=== PATIENT | male | born 1945 | race Caucasian/White ===

== ENCOUNTER 2019-02-23 17:00 | Inpatient (IN) ==
[2019-02-23] MEDS ORDERED: Morphine Sulfate 2 MG/ML SYRINGE ONE (17:07)
[2019-02-23] MEDS ORDERED: Morphine Sulfate 2 MG/ML SYRINGE IVP ONE (17:12)
[2019-02-23] MEDS ORDERED: Nitroglycerin 0.4 MG TAB.SUBL SL PRN (17:46)
[2019-02-23] MEDS ORDERED: MOM Conc 10 ML UD.LIQ PO PRN (17:53)
[2019-02-23] MEDS ORDERED: Ondansetron 4 MG/2 ML VIAL IVP PRN (17:53)
[2019-02-23] MEDS ORDERED: *HR* Promethazine 25 MG/ML VIAL IVP PRN (17:53)
[2019-02-23] MEDS ORDERED: Mag Hydrox/Al Hydrox/Simeth 30 ML UDC PO PRN (17:53)
[2019-02-23] MEDS ORDERED: Naloxone 0.4 MG/ML INJ IVP PRN (17:53)
[2019-02-23] MEDS ORDERED: *HR* Dextrose 50 % in Water (Syg) 50 ML SYRINGE IVP PRN (17:56)
[2019-02-23] MEDS ORDERED: D5% in Water 1,000 ML IVC PRN (17:56)
[2019-02-23] MEDS ORDERED: Morphine Sulfate 2 MG/ML SYRINGE IVP PRN (17:56)
[2019-02-23] MEDS ORDERED: Dextrose Gel 15 GM/37.5 ML TUBE PO PRN ×2 (17:56)
[2019-02-23] MEDS ORDERED: Ergocalciferol (VIT D2) 50,000 UNIT (1.25MG) CAP PO SCH (18:00)
[2019-02-23 18:01] LABS: Basophils # 0.1 K/mcL (0.0-0.2); Basophils % 0.4 %; Eosinophils # 0.1 K/mcL (0.0-0.6); Eosinophils % 0.5 %; Hematocrit 37.6 % (37.5-50.1); Hemoglobin 11.8 g/dL (12.9-16.9); Immature Granulocytes % 0.6 % (0-4); Lymphocytes # 0.9 K/mcL (0.6-4.6); Lymphocytes % 5.6 %; Mean Corpuscular HGB Conc 31.4 g/dL (31.6-35.5); Mean Corpuscular Hemoglobin 26.7 pg (28.0-33.3); Mean Corpuscular Volume 85.1 fL (83.0-100.0); Mean Platelet Volume 9.7 fL (9.4-12.4); Monocytes # 0.9 K/mcL (0.0-1.3); Monocytes % 5.6 %; Neutrophils # 14.8 K/mcL (1.6-8.9); Platelet Count 337 K/mcL (140-400); Red Blood Count 4.42 M/mcL (4.19-5.50); Red Cell Distribution Width 15.3 % (11.5-14.5); Segmented Neutrophils % 87.3 %; White Blood Count 16.9 K/mcL (4.3-11.1)
[2019-02-23 18:12] LABS: INR 2.6; Prothrombin Time 29.8 Seconds (9.4-12.1)
[2019-02-23 18:24] LABS: Alanine Aminotransferase 14 Units/L (7-52); Albumin 4.2 g/dL (3.5-5.7); Albumin/Globulin Ratio 1.1 (1.1-2.2); Alkaline Phosphatase 83 Units/L (34-104); Aspartate Amino Transferase 18 Units/L (13-39); BUN/Creatinine Ratio 25 (6-26); Bilirubin,Total 0.9 mg/dL (0.3-1.0); Blood Urea Nitrogen 25 mg/dL (8-23); Calcium 9.8 mg/dL (8.6-10.3); Carbon Dioxide 27 mEq/L (23-29); Chloride 98 mEq/L (98-107); Glucose 159 mg/dL (70-105); Osmolality,Calculated 288 (280-300); Potassium 4.2 mEq/L (3.5-5.1); Sodium 135 mEq/L (136-145); Total Protein 8.2 g/dL (6.4-8.9); eGFR For African Americans > 60 (> 60); eGFR For Non-African Americans > 60 (> 60)
[2019-02-23] MEDS ORDERED: Albuterol 2.5 MG/3 ML NEBULIZER ONE (19:26)
[2019-02-23] MEDS: Albuterol 2.5 MG/3 ML NEBULIZER IH SCH ×2 (19:28→23:07)
[2019-02-23] MEDS: Furosemide 20 MG TABLET PO SCH (22:09)
[2019-02-23] MEDS: Insulin LISPRO 300 UNITS/3 ML VIAL SQ SCH (22:10)
[2019-02-23] MEDS: (Pravastatin Sodium [Pravachol] 80 MG) PO SCH (22:10)
[2019-02-23] MEDS: carvediloL 25 MG TABLET PO SCH (22:10)
[2019-02-23] MEDS: Lisinopril 20 MG TABLET PO SCH (22:10)
[2019-02-23] MEDS: Acetaminophen 325 MG TABLET PO PRN (22:10)
[2019-02-23] MEDS: Artificial Tears SOLN 15 ML BOTTLE BOTH EYES SCH (22:34)
[2019-02-23] MEDS: Budesonide/Formoterol 160/4.5 1 PUFF INH IH SCH (23:10)
[2019-02-24] MEDS: *HR* OxyCODONE/APAP 5/325 TABLET PO PRN ×4 (00:41→20:35)
[2019-02-24 02:47] LABS: Basophils # 0.1 K/mcL (0.0-0.2); Basophils % 0.6 %; Eosinophils # 0.1 K/mcL (0.0-0.6); Eosinophils % 1.3 %; Hematocrit 33.7 % (37.5-50.1); Hemoglobin 10.7 g/dL (12.9-16.9); Immature Granulocytes % 0.5 % (0-4); Lymphocytes # 1.3 K/mcL (0.6-4.6); Lymphocytes % 11.6 %; Mean Corpuscular HGB Conc 31.8 g/dL (31.6-35.5); Mean Corpuscular Hemoglobin 26.7 pg (28.0-33.3); Mean Platelet Volume 9.4 fL (9.4-12.4); Monocytes # 1.3 K/mcL (0.0-1.3); Monocytes % 11.4 %; Neutrophils # 8.2 K/mcL (1.6-8.9); Platelet Count 258 K/mcL (140-400); Red Blood Count 4.01 M/mcL (4.19-5.50); Red Cell Distribution Width 15.2 % (11.5-14.5); Segmented Neutrophils % 74.6 %
[2019-02-24 02:53] LABS: INR 3.1; Prothrombin Time 35.1 Seconds (9.4-12.1)
[2019-02-24 03:06] LABS: BUN/Creatinine Ratio 26 (6-26); Blood Urea Nitrogen 24 mg/dL (8-23); Calcium 8.9 mg/dL (8.6-10.3); Carbon Dioxide 28 mEq/L (23-29); Chloride 99 mEq/L (98-107); Glucose 137 mg/dL (70-105); Osmolality,Calculated 286 (280-300); Potassium 3.7 mEq/L (3.5-5.1); Sodium 135 mEq/L (136-145); eGFR For African Americans > 60 (> 60); eGFR For Non-African Americans > 60 (> 60)
[2019-02-24] MEDS: Albuterol 2.5 MG/3 ML NEBULIZER IH SCH ×4 (07:23→22:17)
[2019-02-24] MEDS: Budesonide/Formoterol 160/4.5 1 PUFF INH IH SCH ×2 (07:23→22:17)
[2019-02-24] MEDS: Insulin LISPRO 300 UNITS/3 ML VIAL SQ SCH ×4 (07:37→20:36)
[2019-02-24] MEDS: Loratadine 10 MG TABLET PO SCH (08:37)
[2019-02-24] MEDS: carvediloL 25 MG TABLET PO SCH ×2 (08:37→16:40)
[2019-02-24] MEDS: Cholecalciferol (D-3) 1,000 UNIT (25MCG) TABLET PO SCH (08:37)
[2019-02-24] MEDS: Aspirin 81 MG TAB.CHEW PO SCH (08:37)
[2019-02-24] MEDS: NIFEdipine XL (24 HR) 30 MG TAB.ER.24 PO SCH (08:37)
[2019-02-24] MEDS: Artificial Tears SOLN 15 ML BOTTLE BOTH EYES SCH ×3 (08:38→20:36)
[2019-02-24] MEDS: Furosemide 20 MG TABLET PO SCH ×2 (08:38→17:32)
[2019-02-24] MEDS: methIMAzole 5 MG TABLET PO SCH (08:38)
[2019-02-24] MEDS: Tiotropium 18 MCG inhalation IH SCH (09:45)
[2019-02-24] MEDS ORDERED: Warfarin perPT PO PRN (18:00)
[2019-02-24] MEDS: (Pravastatin Sodium [Pravachol] 80 MG) PO SCH (20:35)
[2019-02-24] MEDS: Melatonin 3 MG TABLET PO PRN (20:35)
[2019-02-24] MEDS: Lisinopril 20 MG TABLET PO SCH (20:35)
[2019-02-25] MEDS: *HR* OxyCODONE/APAP 5/325 TABLET PO PRN ×3 (03:30→16:43)
[2019-02-25 07:22] LABS: Hematocrit 34.7 % (37.5-50.1); Hemoglobin 10.8 g/dL (12.9-16.9); Mean Corpuscular HGB Conc 31.1 g/dL (31.6-35.5); Mean Corpuscular Hemoglobin 26.5 pg (28.0-33.3); Mean Corpuscular Volume 85.3 fL (83.0-100.0); Mean Platelet Volume 9.6 fL (9.4-12.4); Platelet Count 257 K/mcL (140-400); Red Blood Count 4.07 M/mcL (4.19-5.50); Red Cell Distribution Width 15.4 % (11.5-14.5)
[2019-02-25 07:25] LABS: INR 2.8
[2019-02-25] MEDS: Tiotropium 18 MCG inhalation IH SCH (07:34)
[2019-02-25] MEDS: Albuterol 2.5 MG/3 ML NEBULIZER IH SCH ×3 (07:34→22:51)
[2019-02-25] MEDS: Budesonide/Formoterol 160/4.5 1 PUFF INH IH SCH ×2 (07:34→22:51)
[2019-02-25] MEDS: Insulin LISPRO 300 UNITS/3 ML VIAL SQ SCH ×4 (07:39→21:31)
[2019-02-25 07:42] LABS: BUN/Creatinine Ratio 26 (6-26); Blood Urea Nitrogen 25 mg/dL (8-23); Calcium 8.7 mg/dL (8.6-10.3); Carbon Dioxide 30 mEq/L (23-29); Chloride 98 mEq/L (98-107); Glucose 132 mg/dL (70-105); Osmolality,Calculated 292 (280-300); Potassium 3.7 mEq/L (3.5-5.1); Sodium 138 mEq/L (136-145); eGFR For African Americans > 60 (> 60); eGFR For Non-African Americans > 60 (> 60)
[2019-02-25] MEDS: Artificial Tears SOLN 15 ML BOTTLE BOTH EYES SCH ×3 (08:50→21:30)
[2019-02-25] MEDS: Loratadine 10 MG TABLET PO SCH (08:52)
[2019-02-25] MEDS: Cholecalciferol (D-3) 1,000 UNIT (25MCG) TABLET PO SCH (08:53)
[2019-02-25] MEDS: carvediloL 25 MG TABLET PO SCH ×2 (08:53→16:18)
[2019-02-25] MEDS: Aspirin 81 MG TAB.CHEW PO SCH (08:53)
[2019-02-25] MEDS: methIMAzole 5 MG TABLET PO SCH (08:53)
[2019-02-25] MEDS: Furosemide 20 MG TABLET PO SCH ×2 (08:53→16:43)
[2019-02-25] MEDS: NIFEdipine XL (24 HR) 30 MG TAB.ER.24 PO SCH (08:53)
[2019-02-25] MEDS ORDERED: *HR* Warfarin 3 MG TABLET PO ONE (18:00)
[2019-02-25] MEDS ORDERED: Warfarin perPT PO PRN (18:00)
[2019-02-25] MEDS: Melatonin 3 MG TABLET PO PRN (21:34)
[2019-02-25] MEDS: Acetaminophen 325 MG TABLET PO PRN (21:34)
[2019-02-25] MEDS: Lisinopril 20 MG TABLET PO SCH (21:34)
[2019-02-25] MEDS: (Pravastatin Sodium [Pravachol] 80 MG) PO SCH (21:34)
[2019-02-26 06:35] LABS: Hematocrit 33.2 % (37.5-50.1); Hemoglobin 10.5 g/dL (12.9-16.9); Mean Corpuscular HGB Conc 31.6 g/dL (31.6-35.5); Mean Corpuscular Hemoglobin 26.7 pg (28.0-33.3); Mean Corpuscular Volume 84.5 fL (83.0-100.0); Mean Platelet Volume 9.7 fL (9.4-12.4); Platelet Count 264 K/mcL (140-400); Red Blood Count 3.93 M/mcL (4.19-5.50); Red Cell Distribution Width 15.4 % (11.5-14.5); White Blood Count 9.8 K/mcL (4.3-11.1)
[2019-02-26 06:37] LABS: Prothrombin Time 33.6 Seconds (9.4-12.1)
[2019-02-26 06:54] LABS: BUN/Creatinine Ratio 27 (6-26); Blood Urea Nitrogen 28 mg/dL (8-23); Calcium 8.6 mg/dL (8.6-10.3); Carbon Dioxide 27 mEq/L (23-29); Chloride 97 mEq/L (98-107); Glucose 134 mg/dL (70-105); Osmolality,Calculated 289 (280-300); Potassium 3.9 mEq/L (3.5-5.1); Sodium 136 mEq/L (136-145); eGFR For African Americans > 60 (> 60); eGFR For Non-African Americans > 60 (> 60)
[2019-02-26] MEDS: Budesonide/Formoterol 160/4.5 1 PUFF INH IH SCH ×2 (07:35→23:27)
[2019-02-26] MEDS: Albuterol 2.5 MG/3 ML NEBULIZER IH SCH ×3 (07:35→23:27)
[2019-02-26] MEDS: Tiotropium 18 MCG inhalation IH SCH (07:35)
[2019-02-26] MEDS: Insulin LISPRO 300 UNITS/3 ML VIAL SQ SCH ×4 (09:18→20:49)
[2019-02-26] MEDS: Loratadine 10 MG TABLET PO SCH (09:20)
[2019-02-26] MEDS: Furosemide 20 MG TABLET PO SCH ×2 (09:20→16:13)
[2019-02-26] MEDS: NIFEdipine XL (24 HR) 30 MG TAB.ER.24 PO SCH (09:20)
[2019-02-26] MEDS: Aspirin 81 MG TAB.CHEW PO SCH (09:20)
[2019-02-26] MEDS: carvediloL 25 MG TABLET PO SCH ×2 (09:20→16:12)
[2019-02-26] MEDS: Cholecalciferol (D-3) 1,000 UNIT (25MCG) TABLET PO SCH (09:20)
[2019-02-26] MEDS: methIMAzole 5 MG TABLET PO SCH (09:21)
[2019-02-26] MEDS: Artificial Tears SOLN 15 ML BOTTLE BOTH EYES SCH ×3 (09:21→20:54)
[2019-02-26] MEDS: *HR* OxyCODONE/APAP 5/325 TABLET PO PRN (09:25)
[2019-02-26] MEDS ORDERED: *HR* Phytonadione 10 MG/ML AMPUL SQ ONE (10:14)
[2019-02-26] MEDS: (Pravastatin Sodium [Pravachol] 80 MG) PO SCH (20:55)
[2019-02-26] MEDS: Lisinopril 20 MG TABLET PO SCH (20:55)
[2019-02-27] MEDS: Insulin LISPRO 300 UNITS/3 ML VIAL SQ SCH ×4 (05:45→20:46)
[2019-02-27] MEDS: Acetaminophen 325 MG TABLET PO PRN (06:29)
[2019-02-27] MEDS: Budesonide/Formoterol 160/4.5 1 PUFF INH IH SCH ×2 (07:16→22:47)
[2019-02-27] MEDS: Albuterol 2.5 MG/3 ML NEBULIZER IH SCH ×3 (07:16→22:47)
[2019-02-27] MEDS: Tiotropium 18 MCG inhalation IH SCH (07:17)
[2019-02-27 07:26] LABS: Hemoglobin 11.9 g/dL (12.9-16.9); Mean Corpuscular HGB Conc 32.2 g/dL (31.6-35.5); Mean Corpuscular Hemoglobin 26.9 pg (28.0-33.3); Mean Corpuscular Volume 83.5 fL (83.0-100.0); Mean Platelet Volume 9.3 fL (9.4-12.4); Platelet Count 295 K/mcL (140-400); Red Blood Count 4.43 M/mcL (4.19-5.50); Red Cell Distribution Width 15.4 % (11.5-14.5)
[2019-02-27 07:30] LABS: INR 1.5; Prothrombin Time 17.2 Seconds (9.4-12.1)
[2019-02-27 07:46] LABS: BUN/Creatinine Ratio 30 (6-26); Blood Urea Nitrogen 26 mg/dL (8-23); Carbon Dioxide 28 mEq/L (23-29); Chloride 98 mEq/L (98-107); Glucose 153 mg/dL (70-105); Osmolality,Calculated 298 (280-300); Potassium 4.1 mEq/L (3.5-5.1); Sodium 140 mEq/L (136-145); eGFR For African Americans > 60 (> 60); eGFR For Non-African Americans > 60 (> 60)
[2019-02-27] MEDS: Aspirin 81 MG TAB.CHEW PO SCH (09:56)
[2019-02-27] MEDS: Cholecalciferol (D-3) 1,000 UNIT (25MCG) TABLET PO SCH (09:57)
[2019-02-27] MEDS: methIMAzole 5 MG TABLET PO SCH (09:57)
[2019-02-27] MEDS: carvediloL 25 MG TABLET PO SCH ×2 (09:57→15:46)
[2019-02-27] MEDS: Loratadine 10 MG TABLET PO SCH (09:57)
[2019-02-27] MEDS: Artificial Tears SOLN 15 ML BOTTLE BOTH EYES SCH ×3 (09:57→20:45)
[2019-02-27] MEDS: NIFEdipine XL (24 HR) 30 MG TAB.ER.24 PO SCH (09:57)
[2019-02-27] MEDS: Furosemide 20 MG TABLET PO SCH ×2 (09:57→15:46)
[2019-02-27] MEDS: (Pravastatin Sodium [Pravachol] 80 MG) PO SCH (20:46)
[2019-02-27] MEDS: Lisinopril 20 MG TABLET PO SCH (20:46)
[2019-02-28 03:24] LABS: Hematocrit 34.4 % (37.5-50.1); Hemoglobin 11.4 g/dL (12.9-16.9); Mean Corpuscular HGB Conc 33.1 g/dL (31.6-35.5); Mean Corpuscular Hemoglobin 26.7 pg (28.0-33.3); Mean Corpuscular Volume 80.6 fL (83.0-100.0); Mean Platelet Volume 9.6 fL (9.4-12.4); Platelet Count 320 K/mcL (140-400); Red Blood Count 4.27 M/mcL (4.19-5.50); Red Cell Distribution Width 15.7 % (11.5-14.5); White Blood Count 11.8 K/mcL (4.3-11.1)
[2019-02-28 03:31] LABS: INR 1.2
[2019-02-28 03:44] LABS: BUN/Creatinine Ratio 27 (6-26); Blood Urea Nitrogen 22 mg/dL (8-23); Calcium 9.2 mg/dL (8.6-10.3); Carbon Dioxide 27 mEq/L (23-29); Chloride 99 mEq/L (98-107); Glucose 160 mg/dL (70-105); Osmolality,Calculated 287 (280-300); Potassium 3.5 mEq/L (3.5-5.1); Sodium 135 mEq/L (136-145); eGFR For African Americans > 60 (> 60); eGFR For Non-African Americans > 60 (> 60)
[2019-02-28] MEDS: Budesonide/Formoterol 160/4.5 1 PUFF INH IH SCH ×2 (07:29→22:12)
[2019-02-28] MEDS: Albuterol 2.5 MG/3 ML NEBULIZER IH SCH ×3 (07:29→22:12)
[2019-02-28] MEDS: Tiotropium 18 MCG inhalation IH SCH (07:29)
[2019-02-28] MEDS: NIFEdipine XL (24 HR) 30 MG TAB.ER.24 PO SCH (07:46)
[2019-02-28] MEDS: carvediloL 25 MG TABLET PO SCH ×2 (07:46→18:06)
[2019-02-28] MEDS: Furosemide 20 MG TABLET PO SCH ×2 (07:47→18:06)
[2019-02-28] MEDS: Cholecalciferol (D-3) 1,000 UNIT (25MCG) TABLET PO SCH (07:47)
[2019-02-28] MEDS: Loratadine 10 MG TABLET PO SCH (07:47)
[2019-02-28] MEDS: methIMAzole 5 MG TABLET PO SCH (07:47)
[2019-02-28] MEDS: Aspirin 81 MG TAB.CHEW PO SCH (07:47)
[2019-02-28] MEDS: Artificial Tears SOLN 15 ML BOTTLE BOTH EYES SCH ×3 (07:48→20:30)
[2019-02-28] MEDS: Insulin LISPRO 300 UNITS/3 ML VIAL SQ SCH ×4 (07:48→19:31)
[2019-02-28] MEDS ORDERED: 0.9 % Sodium Chloride 250 ML IVC ONE (13:31)
[2019-02-28] MEDS: (Pravastatin Sodium [Pravachol] 80 MG) PO SCH (19:32)
[2019-02-28] MEDS: Lisinopril 20 MG TABLET PO SCH (20:30)
[2019-03-01 07:12] LABS: BUN/Creatinine Ratio 31 (6-26); Blood Urea Nitrogen 32 mg/dL (8-23); Calcium 9.2 mg/dL (8.6-10.3); Carbon Dioxide 26 mEq/L (23-29); Chloride 98 mEq/L (98-107); Glucose 142 mg/dL (70-105); Osmolality,Calculated 293 (280-300); Potassium 3.6 mEq/L (3.5-5.1); Sodium 137 mEq/L (136-145); eGFR For African Americans > 60 (> 60); eGFR For Non-African Americans > 60 (> 60)
[2019-03-01 07:15] LABS: Hemoglobin 10.8 g/dL (12.9-16.9); Mean Corpuscular HGB Conc 31.8 g/dL (31.6-35.5); Mean Corpuscular Hemoglobin 26.5 pg (28.0-33.3); Mean Corpuscular Volume 83.5 fL (83.0-100.0); Mean Platelet Volume 9.6 fL (9.4-12.4); Platelet Count 289 K/mcL (140-400); Red Blood Count 4.07 M/mcL (4.19-5.50); Red Cell Distribution Width 15.6 % (11.5-14.5); White Blood Count 10.2 K/mcL (4.3-11.1)
[2019-03-01 07:24] LABS: INR 1.2; Prothrombin Time 13.2 Seconds (9.4-12.1)
[2019-03-01] MEDS: Budesonide/Formoterol 160/4.5 1 PUFF INH IH SCH ×2 (07:26→22:13)
[2019-03-01] MEDS: Tiotropium 18 MCG inhalation IH SCH (07:26)
[2019-03-01] MEDS: Albuterol 2.5 MG/3 ML NEBULIZER IH SCH ×3 (07:26→22:13)
[2019-03-01] MEDS: carvediloL 25 MG TABLET PO SCH ×2 (08:00→14:29)
[2019-03-01] MEDS: Furosemide 20 MG TABLET PO SCH ×2 (08:00→14:29)
[2019-03-01] MEDS: Loratadine 10 MG TABLET PO SCH (08:00)
[2019-03-01] MEDS: Cholecalciferol (D-3) 1,000 UNIT (25MCG) TABLET PO SCH (08:00)
[2019-03-01] MEDS: methIMAzole 5 MG TABLET PO SCH (08:00)
[2019-03-01] MEDS: Aspirin 81 MG TAB.CHEW PO SCH (08:00)
[2019-03-01] MEDS: NIFEdipine XL (24 HR) 30 MG TAB.ER.24 PO SCH (08:03)
[2019-03-01] MEDS: Insulin LISPRO 300 UNITS/3 ML VIAL SQ SCH ×4 (08:11→20:10)
[2019-03-01] MEDS: Artificial Tears SOLN 15 ML BOTTLE BOTH EYES SCH ×3 (08:11→20:08)
[2019-03-01] MEDS: Acetaminophen 325 MG TABLET PO PRN (16:13)
[2019-03-01] MEDS: Lisinopril 20 MG TABLET PO SCH (20:08)
[2019-03-01] MEDS: (Pravastatin Sodium [Pravachol] 80 MG) PO SCH (20:30)
[2019-03-01] MEDS: *HR* OxyCODONE/APAP 5/325 TABLET PO PRN (20:57)
[2019-03-02] MEDS: Acetaminophen 325 MG TABLET PO PRN (04:03)
[2019-03-02 05:24] LABS: BUN/Creatinine Ratio 33 (6-26); Blood Urea Nitrogen 33 mg/dL (8-23); Calcium 8.8 mg/dL (8.6-10.3); Carbon Dioxide 27 mEq/L (23-29); Chloride 102 mEq/L (98-107); Glucose 141 mg/dL (70-105); Osmolality,Calculated 292 (280-300); Potassium 3.6 mEq/L (3.5-5.1); Sodium 136 mEq/L (136-145); eGFR For African Americans > 60 (> 60); eGFR For Non-African Americans > 60 (> 60)
[2019-03-02 05:33] LABS: Hematocrit 31.9 % (37.5-50.1); Hemoglobin 10.4 g/dL (12.9-16.9); Mean Corpuscular HGB Conc 32.6 g/dL (31.6-35.5); Mean Corpuscular Hemoglobin 26.3 pg (28.0-33.3); Mean Corpuscular Volume 80.8 fL (83.0-100.0); Mean Platelet Volume 9.5 fL (9.4-12.4); Platelet Count 290 K/mcL (140-400); Red Blood Count 3.95 M/mcL (4.19-5.50); Red Cell Distribution Width 15.6 % (11.5-14.5); White Blood Count 10.5 K/mcL (4.3-11.1)
[2019-03-02 05:40] LABS: INR 1.1
[2019-03-02 07:26] VITALS: BP 154/74
[2019-03-02] MEDS: Albuterol 2.5 MG/3 ML NEBULIZER IH SCH (07:45)
[2019-03-02] MEDS: Aspirin 81 MG TAB.CHEW PO SCH (08:42)
[2019-03-02] MEDS: methIMAzole 5 MG TABLET PO SCH (08:42)
[2019-03-02] MEDS: Cholecalciferol (D-3) 1,000 UNIT (25MCG) TABLET PO SCH (08:42)
[2019-03-02] MEDS: Loratadine 10 MG TABLET PO SCH (08:43)
[2019-03-02] MEDS: NIFEdipine XL (24 HR) 30 MG TAB.ER.24 PO SCH (08:43)
[2019-03-02] MEDS: carvediloL 25 MG TABLET PO SCH (08:43)
[2019-03-02] MEDS: Furosemide 20 MG TABLET PO SCH (08:43)
[2019-03-02] MEDS: Insulin LISPRO 300 UNITS/3 ML VIAL SQ SCH (08:43)
[2019-03-02] MEDS: Artificial Tears SOLN 15 ML BOTTLE BOTH EYES SCH (08:44)
[2019-03-02] MEDS: Tiotropium 18 MCG inhalation IH SCH (11:18)
[2019-03-02] MEDS: Budesonide/Formoterol 160/4.5 1 PUFF INH IH SCH (11:19)
== END 2019-03-02 12:50 | DRG 200 ==
LOC: EMEROOARM 17:00 → 3BNU 17:00
PROVIDERS: ADMIT Internal Medicine; ATTEND Internal Medicine